=== PATIENT | male | born 1965 | race Caucasian/White ===

== ENCOUNTER 2016-07-12 01:41 | Emergency (ER) | payer BC ==
[~2016-07-12] VITALS: Ht 175.3 cm; Wt 96.5 kg
[2016-07-12 03:02] LABS: POINT-OF-CARE METER ID UU13113747
[2016-07-12] MEDS ORDERED: MOTRIN600 MG PO (03:35)
[2016-07-12] MEDS ORDERED: PERCOCET 5/31 TABLET PO (03:35)
[2016-07-12 04:34] VITALS: BP 121/82
== END 2016-07-12 03:58 | disposition home or self-care (01) ==
LOC: EME 01:41
PROVIDERS: Emergency Medicine
DX: S83.92XA Sprain of unspecified site of left knee, initial encounter (principal); W19.XXXA Unspecified fall, initial encounter; R42 Dizziness and giddiness; R11.0 Nausea
CPT/HCPCS: 73564; 82948; 93005; 99281; 99284